=== PATIENT | female | born 1945 | race Caucasian/White ===

== ENCOUNTER → 2024-11-11 | Outpatient (CLI) | payer OTHER, SELFPAY ==
--- NOTE | 2024-11-11 12:40 | RAD_ITS ---
PROCEDURE: L/S SPINE MIN 4 VIEWS 11/11/2024 REASON FOR EXAM: SACROILIITIS TECHNIQUE: Standing four view lumbar spine series was performed. COMPARISON: None. FINDINGS: There are no compression fractures. There is mild levoscoliosis of the thoracolumbar spine. There is degenerative disc disease, L2-3 through L5-S1 with narrowing of the disc spaces and marginal osteophytes. There is multilevel facet arthropathy. There is no spondylolisthesis. The SI joints are partially obscured by overlying bowel gas but appear unremarkable. There is stool throughout the colon and there is a large amount of stool in the rectal vault. 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 There is moderate arthritis of the right hip. The left hip appears unremarkable. RAD/L/S Spine Min 4 Views IMPRESSION: 1. Multilevel degenerative disc disease with levoscoliosis. 2. The SI joints appear unremarkable. 3. Moderate arthritis of the right hip. 4. Moderate constipation. Reading Location: [id number]
--- NOTE | 2024-11-11 12:40 | RAD_ITS ---
PROCEDURE: HIP, UNI W/ PELVIS 2-3 VIEWS 11/11/2024 REASON FOR EXAM: R HIP PAIN TECHNIQUE: AP view of the pelvis and AP and lateral views of the right hip were obtained. COMPARISON: None. FINDINGS: The bony pelvis appears intact. There is degenerative disc disease, L4-5 and L5-S1. The SI joints appear unremarkable. AP view of the left hip is unremarkable. The soft tissues of the pelvis are unremarkable. AP and lateral views of the right hip demonstrate moderate arthritis with narrowing of the joint space, marginal osteophytes and endplate sclerosis. There is superolateral subluxation of the right femoral head with lateral buttressing of the acetabular roof. RAD/HIP, UNI W/ Pelvis 2-3 Views IMPRESSION: 1. Moderate arthritis of the right hip. 2. Other findings as noted. Reading Location: [id number]
== END | disposition home or self-care (01) ==
PROVIDERS: PCP Nurse Practitioner Family; Referring Provider Anesthesiology; Visit Provider Anesthesiology
DX: M25.551 Pain in right hip (principal); M46.1 Sacroiliitis, not elsewhere classified
CPT/HCPCS: 72110; 73502